=== PATIENT | female | born 1955 | race Caucasian/White ===

== ENCOUNTER 2017-04-15 11:26 | Emergency (ER) | payer MEDICAID ==
[~2017-04-15] VITALS: Ht 152.4 cm; Wt 73.0 kg
[2017-04-15 11:28] VITALS: BP 138/71; PULSE 93; RESP 17; TEMP 98.4; O2SAT 97
--- NOTE | 2017-04-15 12:13 | PD ---
HPI Chief Complaint: Musculoskeletal Complaint Time Seen by Provider: 11:57 Travel History International Travel<30 days: No Contact w/Intl Traveler<30days: No Traveled to known affect area: No History of Present Illness HPI This patient complains of left foot pain. 2 weeks ago in [place] she injured her left foot and went to an ER and x-rays confirmed metatarsal fractures. She was given a Velcro splint/boot and advised to follow-up with orthopedist. She never did that. 2 weeks later she has moved and came to the ER here complaining of left foot pain. No new injury. Symptoms severity is moderate PFSH Social History Alcohol Use: No Tobacco Use: No Substance Use: No Allergies-Medications (Allergen,Severity, Reaction): Coded Allergies: No Known Allergies (Unverified , 04/15/17) Reported Meds & Prescriptions Reported Meds & Active Scripts Active No Active Prescriptions or Reported Medications Review of Systems General / Constitutional: No: Fever HENT: No: Headaches Cardiovascular: No: Chest Pain or Discomfort Respiratory: No: Cough Physical Exam Narrative Psych: Normal mood and affect. Normal insight and judgment. SKIN: Focused skin assessment reveals no rash or ulcers. Skin is warm and dry. Palpation shows no induration or nodules. Left foot: She has tenderness across the dorsum of the foot but there is no swelling or bruising. Data Data Last Documented VS Vital Signs Date Time Temp Pulse Resp B/P Pulse Ox O2 Delivery O2 Flow Rate FiO2 04/15/17 11:28 98.4 93 17 138/71 97 Orders Foot, Complete ([id number]) (04/15/17 ) [facility] Medical Decision Making Medical Screen Exam Complete: Yes Emergency Medical Condition: Yes Medical Record Reviewed: Yes Differential Diagnosis Partially healed fracture, contusion, dislocation Narrative Course I have reviewed the patient's electronic medical record. I reviewed her left foot x-rays which show a nondisplaced first metatarsal fracture I'm not going to change her current walking boot based on this looks lined up well 2 weeks out Reiterated orthopedic follow-up Diagnosis Primary Impression: Metatarsal bone fracture Qualified Code: S92.315A - Closed nondisplaced fracture of first metatarsal bone of left foot, initial encounter Additional Instructions: Follow-up with orthopedist Med/Other Pt SpecificInfo: Other Scripts No Active Prescriptions or Reported Meds Disposition: 01 DISCHARGE HOME Condition: Stable Nic Saldana MD Apr 15, 2017 12:13
--- NOTE | 2017-04-15 12:35 | RADRPT ---
EXAM DATE/TIME: 04/15/2017 12:11 [facility] COMPARISON: No previous studies available for comparison. INDICATIONS : Trauma resulting in left foot pain. MEDICAL HISTORY : None. SURGICAL HISTORY : Fusion, cervical. Fusion, lumbar. Hip replacement, bilateral. ENCOUNTER: Initial ACUITY: 2 weeks PAIN SCORE: 7/10 LOCATION: Left foot. FINDINGS: 3 views of the left foot demonstrates lucency through the posterior cortex of the proximal first meta tarsal metaphysis. No other fracture or dislocation is identified. Lisfranc joint appears intact. The re is severe joint space narrowing with subchondral sclerosis and osteophytes at the first metatarsop halangeal joint. No soft tissue abnormality or radiopaque foreign body is identified. CONCLUSION: 1. Nondisplaced fracture of the proximal first metatarsal metaphysis. 2. Severe osteoarthritis at the first MTP joint. Norman Lunsford MD on April 15, 2017 at 12:31 Board Certified Radiologist. This report was verified electronically.
== END 2017-04-15 14:06 | disposition home or self-care (01) ==
LOC: PHED 11:26
DX: S92.315A Nondisplaced fracture of first metatarsal bone, left foot, initial encounter for closed fracture (principal); X58.XXXA Exposure to other specified factors, initial encounter
CPT/HCPCS: 73630; 99283